=== PATIENT | male | born 1960 | race Caucasian/White ===

== ENCOUNTER 2018-02-15 12:26 | Observation (INO) | payer OTHER ==
--- NOTE | 2018-02-15 12:52 | XRAY ---
Indication: Fever, cough, dyspnea. Comparison: February 13, 2009. PA/lateral chest demonstrates new diffuse left upper lobe airspace disease with small effusion. Remaining heart, right lung, and bony thorax normal.
[2018-02-15 12:54] LABS: Granulocyte Absolute (ANC) 11.49 (1.4-6.9); Hemoglobin 14.7 gm/dl (12.5-18.0); Mean Cell Volume 87.8 fl (78-100); Mean Corpuscular Hemoglobin 29.3 pg (26-32); Mean Corpuscular Hgb Concent. 33.4 g/dl (32-36); Mean Platelet Volume 10.6 fl (6-9.5); Platelet Count 335 K/mm3 (150-450); Red Blood Count 5.01 M/mm3 (4.1-5.6); Red Cell Distribution Width 13.5 % (11.5-14.0); White Blood Count 12.3 K/mm3 (4.0-10.5)
[2018-02-15 13:14] LABS: ALBUMIN 3.6 g/dL (3.5-5.0); ALKALINE PHOSPHATASE 84 U/L (38-126); ANION GAP 12.2 MEQ/L (5-15); BLOOD UREA NITROGEN 28 mg/dL (9-20); CHLORIDE 98 mmol/L (98-107); Calcium 9.2 mg/dL (8.4-10.2); Carbon Dioxide 31 mmol/L (22-30); Creatinine 1 0.94 mg/dL (0.66-1.25); Glucose 125 mg/dL (74-106); Potassium 3.9 mmol/L (3.5-5.1); SGOT/AST 26 U/L (17-59); SGPT/ALT 27 U/L (0-50); SODIUM 137 mmol/L (137-145); Total Protein 6.8 g/dL (6.3-8.2)
[2018-02-15 13:55] LABS: BAND 8 % (0.0-2.0); Eosinophil 1 % (0.00-3.0); Lymphocytes 5 % (24-44); Monocyte 4 % (0.0-12.0); Neutrophils 82 % (36.-66.); Platelet Estimate NORMAL (NORMAL); Total Cells Counted 100; Toxic Granulation 1+
[2018-02-15] MEDS ORDERED: TYLENOL 325 MG PO PRN (14:17)
[2018-02-15] MEDS ORDERED: Zofran 4 MG/2 ML VIAL IV PRN (14:17)
[2018-02-15] MEDS ORDERED: MORPHINE SULFATE 2 MG INJ IV PRN (14:21)
[2018-02-15 14:52] LABS: A-aADO2 38; ABG HEMOGLOBIN 14.5; ABG POTASSIUM 3.4 (3.5-5.1); ABG SITE LEFT BRACHIAL; ARTERIAL BLD GAS O2 SATURATION 96.2 % (95-100); ARTERIAL BLOOD GAS BASE EXCESS 3.9 (-2.0-2.0); ARTERIAL BLOOD GAS FIO2 21 %; ARTERIAL BLOOD GAS PCO2 38 mmHg (35-45); ARTERIAL BLOOD GAS PO2 64 mmHg (75-100); ARTERIAL BLOOD GAS pH 7.47 (7.35-7.45); HCO3- 27.7 (22-28); HGB O2 SAT 92.2 g/dF (94-100); Lactic Acid 0.9 (0.4-2.0); Methhemoglobin 1.2 % (1.4-1.5); paO2 pAO1 0.63
[2018-02-15] MEDS: ROCEPHIN 1 Gm-D5w 50 ml Bag** 1 G/50 ML IVPB IV SCH (15:01)
[2018-02-15] MEDS: Zithromax 500 MG/ 250 ML NaCl Premix 500 MG/250 ML IVPB IV SCH (15:07)
[2018-02-15] MEDS ORDERED: SUBLIMAZE 100 MCG/2 ML IV ONE (16:22)
[2018-02-15] MEDS ORDERED: solu-MEDROL 125 MG IV ONE (17:46)
[2018-02-15] MEDS ORDERED: Lactated Ringers 1,000 ML IV ONE ×2 (17:47→19:37)
[2018-02-15] MEDS ORDERED: TORAdol 30 mg Injection IV PRN (17:47)
--- NOTE | 2018-02-15 17:48 | PCM.HP ---
History of Present Illness - Chief Complaint Chief Complaint: pneumonia Date: 02/15/18 History of Present Illness: is a 57 year old male. 2 days of chills cough difficulty breathing and anterior sharp chest pain with breathing just had pneumonia and was treated last week he smokes 1 ppd but has no other past medical history he denies drug or alcohol use no other exposures no history of TB or exposure to TB. - Review of Systems Constitutional: Fever, Chills, Fatigue Eyes: No Symptoms Ears, Nose, & Throat: No Symptoms Respiratory: Cough, Short Of Breath Cardiac: Chest Pain, No Edema, No Syncope Abdominal/Gastrointestinal: No Abdominal Pain, No Nausea, No Vomiting, No Diarrhea Genitourinary Symptoms: No Dysuria Musculoskeletal: No Back Pain, No Neck Pain Skin: No Rash Neurological: No Dizziness, No Focal Weakness, No Sensory Changes Psychological: No Symptoms Endocrine: No Symptoms Hematologic/Lymphatic: No Symptoms Immunological/Allergic: No Symptoms Medications & Allergies Home Medications: Home Medication List No Reportable Medications [No Reported Medications] 02/15/18 [History Confirmed 02/15/18] Allergies/Adverse Reactions: Allergies Allergy/AdvReac Type Severity Reaction Status Date / Time No Known Drug Allergies Allergy Unverified 02/15/18 14:48 - Past Medical History Past Medical History: Yes Neurological History: No Pertinent History ENT History: No Pertinent History Cardiac History: No Pertinent History Respiratory History: No Pertinent History Endocrine Medical History: No Pertinent History Musculoskelatal History: No Pertinent History GI Medical History: GERD, Hernia History: No Pertinent History Pyscho-Social History: No Pertinent History Male Reproductive Disorders: No Pertinent History Comment: concussion coma - Past Surgical History Past Surgical History: No Neuro Surgical History: Brain Shunt Cardiac History: No Pertinent History Respiratory Surgery: No Pertinent History GI Surgical History: Hernia Repair Genitourinary Surgical Hx: No Pertinent History Musculskeletal Surgical Hx: No Pertinent History Male Surgical History: No Pertinent History - Social History Smoking Status: Current every day smoker Alcohol: None Drug Use: none - Physical Exam Vital Signs: Vital Signs - 24 hr Temp Pulse Resp BP Pulse Ox 02/15/18 16:00 98.9 F 18 L 18 131/74 95 02/15/18 14:18 98.9 F 85 18 131/74 95 General Appearance: no apparent distress, alert Neurologic Exam: alert, oriented x 3, cooperative, normal mood/affect, nml cerebellar function, nml station & gait, sensation nml, No motor deficits Eye Exam: PERRL/EOMI, eyes nml inspection Ears, Nose, Throat Exam: normal ENT inspection, pharynx normal, moist mucous membranes Neck Exam: normal inspection, non-tender, supple, full range of motion Respiratory Exam: chest tenderness (left anterior chest), lungs clear, No respiratory distress Cardiovascular Exam: regular rate/rhythm, normal heart sounds, normal peripheral pulses Gastrointestinal/Abdomen Exam: soft, normal bowel sounds, No tenderness, No mass Back Exam: normal inspection, normal range of motion, No CVA tenderness, No vertebral tenderness Extremity Exam: normal inspection, normal range of motion, pelvis stable Skin Exam: normal color, warm, dry, No rash Lymphatic Exam: No adenopathy Results - Labs Lab/Micro Results: Lab Results-Last 24 Hours 02/15/18 02/15/18 02/15/18 Range/Units 12:32 12:32 12:32 WBC 12.3 H (4.0-10.5) K/mm3 RBC 5.01 (4.1-5.6) M/mm3 Hgb 14.7 (12.5-18.0) gm/dl Hct 44.0 (42-50) % MCV 87.8 (78-100) fl MCH 29.3 (26-32) pg MCHC 33.4 (32-36) g/dl RDW 13.5 (11.5-14.0) % Plt Count 335 (150-450) K/mm3 MPV 10.6 H (6-9.5) fl Absolute Granulocytes 11.49 H (1.4-6.9) Segmented Neutrophils 82 H (36.-66.) % Band Neutrophils 8 H (0.0-2.0) % Lymphocytes (Manual) 5 L (24-44) % Monocytes (Manual) 4 (0.0-12.0) % Eosinophils (Manual) 1 (0.00-3.0) % Differential Comment NORMAL Toxic Granulation 1+ Platelet Estimate NORMAL (NORMAL) Puncture Site pCO2 (35-45) mmHg pO2 (75-100) mmHg Base Excess (-2.0-2.0) O2 Saturation (94-100) g/dF ABG pH (7.35-7.45) ABG HCO3 (22-28) ABG O2 Sat (Measured) (95-100) % Mu Test A-a Gradient a/A Ratio Hemoglobin Carboxyhemoglobin (0.0-6.9) % THgb Methemoglobin (1.4-1.5) % Temperature C POC O2 Flow Rate % Sodium 137 (137-145) mmol/L Potassium 3.9 (3.5-5.1) mmol/L Chloride 98 (98-107) mmol/L Carbon Dioxide 31 H (22-30) mmol/L Anion Gap 12.2 (5-15) MEQ/L BUN 28 H (9-20) mg/dL Creatinine 0.94 (0.66-1.25) mg/dL Estimated GFR > 60 ML/MIN Glucose 125 H (74-106) mg/dL Lactic Acid (0.4-2.0) Calcium 9.2 (8.4-10.2) mg/dL Total Bilirubin 0.40 (0.2-1.3) mg/dL AST 26 (17-59) U/L ALT 27 (0-50) U/L Alkaline Phosphatase 84 (38-126) U/L Troponin I < 0.012 (0.000-0.034) ng/mL Serum Total Protein 6.8 (6.3-8.2) g/dL Albumin 3.6 (3.5-5.0) g/dL 02/15/18 Range/Units 14:19 WBC (4.0-10.5) K/mm3 RBC (4.1-5.6) M/mm3 Hgb (12.5-18.0) gm/dl Hct (42-50) % MCV (78-100) fl MCH (26-32) pg MCHC (32-36) g/dl RDW (11.5-14.0) % Plt Count (150-450) K/mm3 MPV (6-9.5) fl Absolute Granulocytes (1.4-6.9) Segmented Neutrophils (36.-66.) % Band Neutrophils (0.0-2.0) % Lymphocytes (Manual) (24-44) % Monocytes (Manual) (0.0-12.0) % Eosinophils (Manual) (0.00-3.0) % Differential Comment Toxic Granulation Platelet Estimate (NORMAL) Puncture Site LEFT BRACHIAL pCO2 38 (35-45) mmHg pO2 64 L (75-100) mmHg Base Excess 3.9 H (-2.0-2.0) O2 Saturation 92.2 L (94-100) g/dF ABG pH 7.47 H (7.35-7.45) ABG HCO3 27.7 (22-28) ABG O2 Sat (Measured) 96.2 (95-100) % Mu Test NOT APPLICABLE A-a Gradient 38 a/A Ratio 0.63 Hemoglobin 14.5 Carboxyhemoglobin 3.0 (0.0-6.9) % THgb Methemoglobin 1.2 L (1.4-1.5) % Temperature 37.0 C POC O2 Flow Rate 21 % Sodium (137-145) mmol/L Potassium 3.4 L (3.5-5.1) mmol/L Chloride (98-107) mmol/L Carbon Dioxide (22-30) mmol/L Anion Gap (5-15) MEQ/L BUN (9-20) mg/dL Creatinine (0.66-1.25) mg/dL Estimated GFR ML/MIN Glucose (74-106) mg/dL Lactic Acid 0.9 (0.4-2.0) Calcium (8.4-10.2) mg/dL Total Bilirubin (0.2-1.3) mg/dL AST (17-59) U/L ALT (0-50) U/L Alkaline Phosphatase (38-126) U/L Troponin I (0.000-0.034) ng/mL Serum Total Protein (6.3-8.2) g/dL Albumin (3.5-5.0) g/dL - Radiology Impressions Radiology Exams & Impressions: Radiology Procedures Category Date Time Status CHEST 2 VIEWS (PA AND LAT) Routine Exams 02/15/18 12:38 Completed Assessment/Plan (1) Pneumonia Current Visit: Yes Status: Acute Qualifiers: Laterality: left Lung location: upper lobe of lung Assessment & Plan: with pleuritic chest pain start azithromycin and ceftriaxone solumedrol 125 mg stat the morphine made the pain worse fentanyl improved pain will continue this toradol prn after the fluid bolus pepcid for gi ppx and lovenox for dvt ppx d-dimer pending Code(s): J18.9 - PNEUMONIA, UNSPECIFIED ORGANISM
[2018-02-15] MEDS: Lactated Ringers 1,000 ML IV SCH ×2 (19:25→19:41)
[2018-02-15] MEDS: SUBLIMAZE 100 MCG/2 ML IV PRN ×2 (19:41→23:09)
[2018-02-15] MEDS: Pepcid 20 MG PO SCH (21:25)
[2018-02-16 05:37] LABS: Granulocyte Absolute (ANC) 10.07 (1.4-6.9); Hematocrit 39.5 % (42-50); Hemoglobin 13.3 gm/dl (12.5-18.0); Mean Cell Volume 87.8 fl (78-100); Mean Corpuscular Hemoglobin 29.6 pg (26-32); Mean Corpuscular Hgb Concent. 33.7 g/dl (32-36); Mean Platelet Volume 10.5 fl (6-9.5); Platelet Count 310 K/mm3 (150-450); Red Cell Distribution Width 13.3 % (11.5-14.0); White Blood Count 10.6 K/mm3 (4.0-10.5)
[2018-02-16 05:49] LABS: ANION GAP 11.1 MEQ/L (5-15); BLOOD UREA NITROGEN 17 mg/dL (9-20); CHLORIDE 103 mmol/L (98-107); Calcium 9.1 mg/dL (8.4-10.2); Carbon Dioxide 27 mmol/L (22-30); Creatinine 1 0.59 mg/dL (0.66-1.25); Glucose 177 mg/dL (74-106); SODIUM 137 mmol/L (137-145)
[2018-02-16 05:55] LABS: NT PRO BNP 335 pg/mL (0-900)
[2018-02-16] MEDS ORDERED: SUBLIMAZE 100 MCG/2 ML IV PRN (06:45)
[2018-02-16] MEDS: Lactated Ringers 1,000 ML IV SCH (06:59)
[2018-02-16 07:26] LABS: BAND 26 % (0.0-2.0); Lymphocytes 7 % (24-44); Monocyte 4 % (0.0-12.0); Neutrophils 63 % (36.-66.); Total Cells Counted 100
[2018-02-16 07:27] LABS: ANISOCYTOSIS 1+; Platelet Estimate NORMAL (NORMAL); Toxic Granulation 1+
--- NOTE | 2018-02-16 08:48 | XRAY ---
Indication: Elevated d-dimer. Fever, cough, dyspnea. Multiple contiguous axial images obtained through the chest using 80 cc Isovue 370 contrast and PE protocol. Comparison: None There is good opacification of the pulmonary arteries to include the lobar and segmental branches. No filling defect or pulmonary embolus. Heart is not enlarged. Aorta is normal in course and caliber. A few prominent mediastinal lymph nodes, largest 1.4 x 2.3 cm in the AP window. Also small subcarinal and right infrahilar calcified nodes. Examination of the lung parenchyma demonstrates large consolidating airspace disease in the left upper lobe and lingula with lesser degree in the superior segment of the left lower lobe. Also bibasilar dependent atelectasis, left greater than right and tiny left effusion. Bony thorax intact. Limited upper abdomen is unremarkable. Impression: 1. Negative pulmonary embolus. 2. Diffuse left lung consolidating airspace disease with tiny effusion corresponding to the same day chest radiograph finding. Probable reactive mediastinal lymph nodes. Comment: Preliminary interpretation was made by [facility]. No discrepancy. CT DI 16.67
[2018-02-16] MEDS: Pepcid 20 MG PO SCH (09:49)
[2018-02-16] MEDS: ROCEPHIN 1 Gm-D5w 50 ml Bag** 1 G/50 ML IVPB IV SCH (09:50)
[2018-02-16] MEDS ORDERED: ENOXAPARIN SODIUM SQ SCH (10:00)
[2018-02-16] MEDS: Zithromax 500 MG/ 250 ML NaCl Premix 500 MG/250 ML IVPB IV SCH (12:01)
[2018-02-16 17:09] VITALS: BP 150/75; PULSE 91; O2SAT 95
--- NOTE | 2018-02-16 17:36 | PCM.DS ---
Discharge Summary Date of Admission: 02/15/18 13:38 Date of Discharge: 02/16/2018 Admitting Physician: JUAN MCFARLANE Primary Care Provider: JUAN MCFARLANE Allergies Allergies No Known Drug Allergies Allergy (Unverified 02/15/18 14:48) Hospital Summary - Hospital Course Hospital Course: He presented to [facility] with sob, tachypnea, chest pain and fever with productive sputum. Work up showed bandemia and pneumonia and elevated d-dimer. he was treated with Rocephin and azithromycin and 125 mg of solumedrol. He had 1 dose of morphine at 2mg iv and it made his pain in his chest worse and he was checked troponin and ekg were negative but d dimer eleaveted and ct pe protocol showed extensive left sided pneumonia with reactive mediastinal lymphadenopathy. His izabella pain resolved after 1 dose of 25 mcg fentanyl and he did not take any further. He did well with no oxygen and remained afebrile. His tachypnea improved but remained sob with exertion. he had copious benji brown sputum production with sputum culture pending. He was asking for discharge to home and was preformed with follow up next week and continue the antibiotics with cefdinir. He had his 2nd dose of rocephin and azithromycin prior to discharge. - Vitals & Intake/Output Vital Signs: Vital Signs Temperature 98.5 F 02/16/18 16:00 Pulse Rate 91 H 02/16/18 16:00 Respiratory Rate 18 02/16/18 16:00 Blood Pressure 150/75 02/16/18 16:00 O2 Sat by Pulse Oximetry 95 02/16/18 16:00 Intake & Output: Intake & Output 02/14/18 02/15/18 02/16/18 02/17/18 11:59 11:59 11:59 11:59 Intake Total 2348 360 Output Total 600 Balance 1748 360 Weight 60.1 kg - Lab Result Diagrams: 02/16/18 05:20 02/16/18 05:20 Lab Results-Last 24 Hrs: Lab Results-Last 24 Hours 02/15/18 02/16/18 02/16/18 Range/Units 17:44 05:20 05:20 WBC 10.6 H (4.0-10.5) K/mm3 RBC 4.50 (4.1-5.6) M/mm3 Hgb 13.3 (12.5-18.0) gm/dl Hct 39.5 L (42-50) % MCV 87.8 (78-100) fl MCH 29.6 (26-32) pg MCHC 33.7 (32-36) g/dl RDW 13.3 (11.5-14.0) % Plt Count 310 (150-450) K/mm3 MPV 10.5 H (6-9.5) fl Absolute Granulocytes 10.07 H (1.4-6.9) Segmented Neutrophils 63 (36.-66.) % Band Neutrophils 26 H (0.0-2.0) % Lymphocytes (Manual) 7 L (24-44) % Monocytes (Manual) 4 (0.0-12.0) % Differential Comment ABNORMAL Toxic Granulation 1+ Platelet Estimate NORMAL (NORMAL) Anisocytosis 1+ D-Dimer 867.64 H* (215-500) ng/mL Sodium 137 (137-145) mmol/L Potassium 4.0 (3.5-5.1) mmol/L Chloride 103 (98-107) mmol/L Carbon Dioxide 27 (22-30) mmol/L Anion Gap 11.1 (5-15) MEQ/L BUN 17 (9-20) mg/dL Creatinine 0.59 L (0.66-1.25) mg/dL Estimated GFR > 60 ML/MIN Glucose 177 H (74-106) mg/dL Calcium 9.1 (8.4-10.2) mg/dL NT-Pro-B Natriuret Pep 335 (0-900) pg/mL - Radiology Exams Ordered Rad Exams-Entire Visit: Radiology Procedures Category Date Time Status CHEST 2 VIEWS (PA AND LAT) Routine Exams 02/15/18 12:38 Completed CHEST WITH CONTRAST [CT] Stat Exams 02/15/18 18:20 Completed - Procedures and Test Procedures and Tests throughout Hospitalization: Therapy Orders & Screens 02/15/18 14:17 EKG STAT Comment: 02/15/18 15:00 OT Screen per Nursing Assess ONCE Comment: Protocol Order Physician Instructions: Greater than 3 points order OT Admission Screening Reason For Exam: Triggered on Admission Diagnosis: pneumonia Open Wound/Cellutlitis/Pressure Ulcers: No Acute Fx/ORIF/Change in wt bearing status: No Severe MUSCULOSKELETAL pain: Yes: left chest from pneumonia ADL Dysfunction: No Acute CVA w/Hemiparesis/Hemiplegia: No Decreased Functional Mobility/Strength: No Sprain/Strain: No Acute Post-op Mobility Dysfunction: No Total Points: 5 PT Screen per Nursing Assess ONCE Comment: Protocol Order Physician Instructions: Greater than 3 points order PT Admission Screenin Reason For Exam: Triggered on Admission Diagnosis: pneumonia Open Wound/Cellutlitis/Pressure Ulcers: No Acute Fx/ORIF/Change in wt bearing status: No Severe MUSCULOSKELETAL pain: Yes: left chest from pneumonia ADL Dysfunction: No Acute CVA w/Hemiparesis/Hemiplegia: No Decreased Functional Mobility/Strength: No Sprain/Strain: No Acute Post-op Mobility Dysfunction: No Total Points: 5 Smoking Cessation Education ONCE Comment: Diagnosis: pneumonia Smoking Status: Current some day smoker Discharge Exam General Appearance: no apparent distress, alert, thin Neurologic Exam: alert, oriented x 3, cooperative, normal mood/affect, nml cerebellar function, sensation nml, No motor deficits Skin Exam: normal color, warm, dry Eye Exam: PERRL, EOMI, eyes nml inspection Ears, Nose, Throat Exam: normal ENT inspection, pharynx normal, moist mucous membranes Neck Exam: normal inspection, non-tender, supple, full range of motion Respiratory Exam: normal breath sounds, lungs clear, No respiratory distress Cardiovascular Exam: regular rate/rhythm, normal heart sounds Gastrointestinal/Abdomen Exam: soft, No tenderness, No mass Extremity Exam: normal inspection, normal range of motion Back Exam: normal inspection, normal range of motion, No CVA tenderness, No vertebral tenderness Male Genitalia Exam: deferred Rectal Exam: deferred Final Diagnosis/Problem List - Final Discharge Diagnosis/Problem (1) Pneumonia Status: Acute Onset Date: ~02/15/18 - Discharge Discharge Date: 02/16/18 Disposition: Home, Self-Care Condition: Stable Prescriptions: New Cefdinir 300 mg [Omnicef 300 mg] 300 mg PO BID #10 capsule Instructions: Pneumonia, Adult (DC) Follow up with: JUAN MCFARLANE [Primary Care Provider] - 02/23/18 9:45 am Forms: Discharge Instructions
== END 2018-02-16 18:35 | disposition home or self-care (01) ==
LOC: RAD 12:26 → EDSTATUS 13:37 → MED SURG 13:38
PROVIDERS: ADMIT Family Medicine; ATTEND Family Medicine
DX: J18.9 Pneumonia, unspecified organism (principal); K21.9 Gastro-esophageal reflux disease without esophagitis; Z72.0 Tobacco use; R07.89 Other chest pain
CPT/HCPCS: 36415; 36600; 71046; 71260; 80048; 80053; 82375; 82803; 83605; 83880; 84484; 85025; 85379; 93005; 93268; G0378; J0456; J0696; J1650; J2270; J2930; J3010; A9270-GY

== ENCOUNTER 2021-01-30 13:21 | Emergency (ER) | payer OTHER ==
[2021-01-30] MEDS ORDERED: Sodium Chloride 0.9% 1000 ML 1,000 ML IV STA (13:29)
[2021-01-30 13:33] VITALS: BP 178/93
[2021-01-30] MEDS ORDERED: Sodium Chloride 0.9% 1000 ML 1,000 ML ONE (13:43)
[2021-01-30 13:57] LABS: Absolute Neutrophil Ct (ANC) 3.44 (1.4-6.9); BASOPHIL % 0.3 % (0.0-0.4); Basophil (Absolute #) 0.02 (0-0.4); Eosinophil % 4.2 % (0.00-5.0); Eosinophil (Absolute #) 0.26 (0-0.5); Hematocrit 44.5 % (42-50); Hemoglobin 14.2 gm/dl (12.5-18.0); Lymphocyte (Absolute #) 1.96 (1.0-4.6); Lymphocytes % 31.5 % (24.0-44.0); Mean Cell Volume 90.1 fl (78-100); Mean Corpuscular Hemoglobin 28.7 pg (26-32); Mean Corpuscular Hgb Concent. 31.9 g/dl (32-36); Mean Platelet Volume 10.1 fl (7.5-11.0); Monocyte (Absolute #) 0.54 (0.0-1.3); Monocytes % 8.7 % (0.0-12.0); Neutrophil % 55.3 % (36.0-66.0); Platelet Count 367 K/mm3 (150-450); Red Blood Count 4.94 M/mm3 (4.1-5.6); Red Cell Distribution Width 13.2 % (11.5-14.0); White Blood Count 6.2 K/mm3 (4.0-10.5)
--- NOTE | 2021-01-30 14:04 | ERPHSYRPT ---
- History of Present Illness Time Seen by Provider: 01/30/21 14:02 Source: patient Exam Limitations: no limitations Patient Subjective Stated Complaint: Pt states "I keep gatting dizzy. I was told if I got dizzy again to come to the ER." Triage Nursing Assessment: PT presented alert and oriented X 3, skin wpd pt ambulates with an upright steady gait, able to speak in clear full sentences pt in no apparent respiratory distress. Physician History: Mr. Harris is 60-year-old gentleman with history of hypertension started getting dizzy for last 2 to 3 days. Today his dizziness got worse so he came to the emergency room. He denies any spinning room sensation. He denies dizziness while turning head. He denies any chest pain nausea vomiting abdominal pain diarrhea headache. Timing/Duration: yesterday Severity: moderate Associated Symptoms: denies symptoms Allergies/Adverse Reactions: No Known Drug Allergies Allergy (Verified 01/30/21 13:33) Home Medications: Amlodipine Besylate 5 mg [Norvasc 5 mg] 5 mg PO DAILY 01/30/21 [History] Sertraline HCl [Zoloft] 25 mg PO DAILY 01/30/21 [History] Hx Tetanus, Diphtheria Vaccination/Date Given: No Hx Influenza Vaccination/Date Given: No Hx Pneumococcal Vaccination/Date Given: No Immunizations Up to Date: Yes Travel Risk - International Travel Have you traveled outside of the country in past 3 weeks: No - Coronavirus Screening Are you exhibiting any of the following symptoms?: No Close contact with a COVID-19 positive Pt in past 14-21 Days: No - Review of Systems Constitutional: No Fever, No Chills Eyes: No Symptoms Ears, Nose, & Throat: No Symptoms Respiratory: No Cough, No Dyspnea Cardiac: No Chest Pain, No Edema, No Syncope Abdominal/Gastrointestinal: No Abdominal Pain, No Nausea, No Vomiting, No Diarrhea Genitourinary Symptoms: No Dysuria Musculoskeletal: No Back Pain, No Neck Pain Skin: No Rash Neurological: No Dizziness, No Focal Weakness, No Sensory Changes Psychological: No Symptoms Endocrine: No Symptoms All Other Systems: Reviewed and Negative - Past Medical History Pertinent Past Medical History: Yes Neurological History: No Pertinent History ENT History: No Pertinent History Cardiac History: No Pertinent History Respiratory History: No Pertinent History Endocrine Medical History: No Pertinent History Musculoskeletal History: No Pertinent History GI Medical History: GERD, Hernia History: No Pertinent History Psycho-Social History: No Pertinent History Male Reproductive Disorders: No Pertinent History Other Medical History: concussion coma - Past Surgical History Past Surgical History: No Neuro Surgical History: Brain Shunt Cardiac: No Pertinent History Respiratory: No Pertinent History Gastrointestinal: Hernia Repair Genitourinary: No Pertinent History Musculoskeletal: No Pertinent History Male Surgical History: No Pertinent History - Social History Smoking Status: Current every day smoker How long have you smoked: 20 years Exposure to second hand smoke: Yes Drug Use: none Patient Lives Alone: No - Nursing Vital Signs Nursing Vital Signs: Initial Vital Signs Temperature 97.7 F 01/30/21 13:25 Pulse Rate 76 01/30/21 13:25 Respiratory Rate 20 01/30/21 13:25 Blood Pressure 178/93 01/30/21 13:25 O2 Sat by Pulse Oximetry 99 01/30/21 13:25 Pain Scale Pain Intensity 0 - Physical Exam General Appearance: no apparent distress, alert Eye Exam: PERRL/EOMI, eyes nml inspection Ears, Nose, Throat Exam: normal ENT inspection, TMs normal, pharynx normal, moist mucous membranes Neck Exam: normal inspection, non-tender, supple, full range of motion Respiratory Exam: normal breath sounds, lungs clear, No respiratory distress Cardiovascular Exam: regular rate/rhythm, normal heart sounds, normal peripheral pulses Gastrointestinal/Abdomen Exam: soft, normal bowel sounds, No tenderness, No mass Back Exam: normal inspection, normal range of motion, No CVA tenderness, No vertebral tenderness Extremity Exam: normal inspection, normal range of motion, pelvis stable Neurologic Exam: alert, oriented x 3, cooperative, normal mood/affect, nml cerebellar function, nml station & gait, sensation nml, No motor deficits Skin Exam: normal color, warm, dry, No rash Lymphatic Exam: No adenopathy SpO2: 99 - Course Nursing assessment & vital signs reviewed: Yes - Radiology Exams Chest X-ray Interpretation: Reviewed by me, Negative - CT Exams Head CT Interpretation: Tele-radiologist Report, No/Intracranial Hemorrhag Ordered Tests: Active Orders 24 hr Category Date Time Status Risk Management Director STAT Care 01/30/21 13:30 Active EKG-ER Only STAT Care 01/30/21 13:29 Active CHEST 2 VIEWS (PA AND LAT) Stat Exams 01/30/21 13:30 Taken HEAD WITHOUT CONTRAST [CT] Stat Exams 01/30/21 13:30 Taken CBC W DIFF Stat Lab 01/30/21 13:30 Completed CMP Stat Lab 01/30/21 13:30 Completed TROPONIN Q3H Lab 01/30/21 13:30 Received TROPONIN Q3H Lab 01/30/21 16:30 Ordered TROPONIN Q3H Lab 01/30/21 19:30 Ordered TROPONIN Q3H Lab 01/30/21 22:30 Ordered TROPONIN Q3H Lab 01/31/21 01:30 Ordered UA W/RFX UR CULTURE Stat Lab 01/30/21 13:45 Completed Medication Summary Discontinued Medications Generic Name Dose Route Start Last Admin Trade Name Martínezq PRN Reason Stop Dose Admin Sodium Chloride 1,000 mls @ 999 mls/hr 01/30/21 13:29 01/30/21 13:43 Sodium Chloride 0.9% 1000 Ml IV 01/30/21 14:29 999 mls/hr .Q1H1M STA Administration Sodium Chloride Confirm 01/30/21 13:43 Sodium Chloride 0.9% 1000 Ml Administered 01/30/21 13:44 Dose 1,000 mls @ ud .ROUTE .STK-MED ONE Meclizine HCl Confirm 01/30/21 14:39 Antivert 25 Mg Administered 01/30/21 14:40 Dose 50 mg .ROUTE .STK-MED ONE Lab/Rad Data: Laboratory Result Diagrams 01/30/21 13:30 01/30/21 13:30 Laboratory Results 01/30/21 01/30/21 01/30/21 Range/Units 13:45 13:30 13:30 WBC 6.2 (4.0-10.5) K/mm3 RBC 4.94 (4.1-5.6) M/mm3 Hgb 14.2 (12.5-18.0) gm/dl Hct 44.5 (42-50) % MCV 90.1 (78-100) fl MCH 28.7 (26-32) pg MCHC 31.9 L (32-36) g/dl RDW 13.2 (11.5-14.0) % Plt Count 367 (150-450) K/mm3 MPV 10.1 (7.5-11.0) fl Gran % 55.3 (36.0-66.0) % Eos # (Auto) 0.26 (0-0.5) Absolute Lymphs (auto) 1.96 (1.0-4.6) Absolute Monos (auto) 0.54 (0.0-1.3) Lymphocytes % 31.5 (24.0-44.0) % Monocytes % 8.7 (0.0-12.0) % Eosinophils % 4.2 (0.00-5.0) % Basophils % 0.3 (0.0-0.4) % Absolute Granulocytes 3.44 (1.4-6.9) Basophils # 0.02 (0-0.4) Sodium 138 (137-145) mmol/L Potassium 4.3 (3.5-5.1) mmol/L Chloride 105 (98-107) mmol/L Carbon Dioxide 27 (22-30) mmol/L Anion Gap 10.3 (5-15) MEQ/L BUN 8 L (9-20) mg/dL Creatinine 0.70 (0.66-1.25) mg/dL Estimated GFR > 60.0 ML/MIN Glucose 113 H (74-106) mg/dL Calcium 9.4 (8.4-10.2) mg/dL Total Bilirubin 0.50 (0.2-1.3) mg/dL AST 33 (17-59) U/L ALT 20 (0-50) U/L Alkaline Phosphatase 61 (38-126) U/L Serum Total Protein 7.3 (6.3-8.2) g/dL Albumin 4.4 (3.5-5.0) g/dL Urine Color YELLOW (YELLOW) Urine Appearance CLEAR (CLEAR) Urine pH 5.0 (5-6) Ur Specific [place] 1.018 (1.005-1.025) Urine Protein NEGATIVE (Negative) Urine Ketones NEGATIVE (NEGATIVE) Urine Blood NEGATIVE (0-5) Alfonso/ul Urine Nitrite NEGATIVE (NEGATIVE) Urine Bilirubin NEGATIVE (NEGATIVE) Urine Urobilinogen NEGATIVE (0-1) mg/dL Ur Leukocyte Esterase NEGATIVE (NEGATIVE) Urine WBC (Auto) NONE SEEN (0-5) /HPF Urine RBC (Auto) 0-2 (0-2) /HPF U Epithel Cells (Auto) RARE (FEW) /HPF Urine Bacteria (Auto) NONE (NEGATIVE) /HPF Urine Mucus (Auto) SLIGHT (NEGATIVE) /HPF Urine Culture Reflexed NO (NO) Urine Glucose NEGATIVE (NEGATIVE) mg/dL - Progress Progress: improved Counseled pt/family regarding: lab results, diagnosis, need for follow-up, rad results, smoking cessation - Departure Departure Disposition: Home Clinical Impression: Dizziness and giddiness Condition: Stable Critical Care Time: Yes Critical Care Time(excluding separately billable procedures): Critical 30-74 mins Referrals: CARLOS GUERIN [Primary Care Provider] - Instructions: Dizziness, Nonvertigo, (DC) Additional Instructions: ANDRIA COLLADO was seen on 01/30/21 n the Emergency Room. At that time you were treated for an emergent condition, during your visit Laboratory, Radiology and/or other procedures may have been ordered. It is very important that you follow-up with your Primary Care Physician CARLOS GUERIN within the next 24-48 hours to review your Emergency Room visit and the final results of testing that was ordered. Some test results such as Urine Cultures, Blood Cultures, and other cultures if ordered will not be finalized for 24-48 hours. If you do not have a Primary Care Provider please call the medical records department at [phone] ext [phone] to obtain a copy of your results or you may sign into our patient portal to obtain these results by visiting us @ [email or web address] and completing the following steps: 1. Click on the Patient Portal link 2. Click the Patient Self Enrollment Link to complete the enrollment form and entering your 3. Once the enrollment form is completed you will receive an email with a tem porary ID and password at the email address you provided. 4. Next choose a user name and password. Your user name must be at least 4 characters long and your password must be at least 4 characters long. 5. Choose a security question from the list and provide your answer to the question. If you already have signed into the Health Portal you may access your Health Care Information 12/06 by the following steps: 1. Login to our website @ [email or web address] 2. Enter your original user name and password. FAQS The [facility] Health Portal is an online tool that contains your Lab Results, Radiology Reports, Visit History, Discharge Instructions and Health Summary Lab and Radiology Results will not be available for 72 hours on the portal. The Portal is a secure site, passwords are encryted and URLs are re-written so they cannot be copied and pasted. You and authorized family members are the only ones who can access your Portal. Also there is a timeout feature that protects your information if you leave the Portal page open. If you have technical difficulty please use the Contact Us link on the page this will allow you to submit any questions you have regarding the Portal or you may contact the Medical Record Department at [phone] ext [phone]. Discharge/Care Plan ANDRIA COLLADO was seen on 01/30/21 in the Emergency Room. The patient was counseled regarding Diagnosis,Lab results, Imaging studies, need for follow up and when to return to the Emergency Room. Prescriptions given: Discharge Note I have spoken with the patient and/or caregivers. I have explained the patient's condition, diagnosis and treatment plan based on the information available to me at this time. I have answered the patient's and/or caregiver's questions and addressed any concerns. The patient and/or caregivers have as good understanding of the patient's diagnosis, condition and treatment plan as can be expected at this point. The vital signs have been stable. The patient's condition is stable and appropriate for discharge from the emergency department. The patient will pursue further outpatient evaluation with the primary care physician or other designated or consulting physician as outlined in the discharge instructions. The patient and/or caregivers are agreeable to this plan of care and follow-up instructions have been explained in detail. The patient and/or caregivers have received these instruction. The patient/and or caregivers are aware that any significant change in condition or worsening of symptoms should prompt an immediate return to this or the closest emergency department or call 911. Prescriptions: Meclizine HCl 25 mg [Antivert 25 mg] 25 mg PO TID PRN #20 tablet PRN Reason: Dizziness
[2021-01-30 14:12] LABS: Appearance CLEAR (CLEAR); Bilirubin NEGATIVE (NEGATIVE); Blood NEGATIVE Ery/ul (0-5); Epithelial Cells RARE /HPF (FEW); Glucose NEGATIVE (NEGATIVE); Ketones NEGATIVE (NEGATIVE); Leukocyte Esterase NEGATIVE (NEGATIVE); Mucus SLIGHT /HPF (NEGATIVE); Nitrite NEGATIVE (NEGATIVE); Protein,Urine Dip NEGATIVE (Negative); RBC 0-2 /HPF (0-2); Specific Gravity 1.018 (1.005-1.025); Urobilinogen NEGATIVE mg/dL (0-1)
[2021-01-30 14:16] LABS: ALBUMIN 4.4 g/dL (3.5-5.0); ALKALINE PHOSPHATASE 61 U/L (38-126); ANION GAP 10.3 MEQ/L (5-15); BLOOD UREA NITROGEN 8 mg/dL (9-20); CHLORIDE 105 mmol/L (98-107); Calcium 9.4 mg/dL (8.4-10.2); Carbon Dioxide 27 mmol/L (22-30); EST GLOMERULAR FILTRATION RATE > 60.0 ML/MIN; Glucose 113 mg/dL (74-106); Potassium 4.3 mmol/L (3.5-5.1); SGOT/AST 33 U/L (17-59); SGPT/ALT 20 U/L (0-50); SODIUM 138 mmol/L (137-145); Total Protein 7.3 g/dL (6.3-8.2)
[2021-01-30 14:18] LABS: WBC NONE SEEN /HPF (0-5)
[2021-01-30 14:35] VITALS: PULSE 72
[2021-01-30] MEDS ORDERED: ANTIVERT 25 MG PO ONE (14:35)
[2021-01-30] MEDS ORDERED: ANTIVERT 25 MG ONE (14:39)
[2021-01-30 14:44] VITALS: O2SAT 99
--- NOTE | 2021-01-30 20:08 | XRAY ---
Indication: Dizziness. Comparison: February 15, 2018. PA/lateral chest demonstrates new left mid to lower lung minimal fibrosis/scarring. No focal infiltrate, consolidation, or large effusion. Heart and mediastinal structures within normal limits. Bony thorax intact. No new/acute findings. Impression: Nonacute chest with chronic feature.
--- NOTE | 2021-01-30 20:12 | XRAY ---
Indication: Dizziness. Multiple contiguous axial images obtained through the head without contrast. Comparison: February 13, 2009. Continued normal appearing brain parenchyma, ventricles, and bony calvarium. Again 1 cm left sphenoid sinus polyp/retention cyst. Remaining visualized paranasal sinuses are clear. Stable minimal opacification of both mastoid air cells. Impression: Again left sphenoid sinus polyp/retention cyst and partial opacification of both mastoid air cells presumed inflammatory. No new/acute intracranial abnormalities. Comment: Preliminary interpretation was made by [facility]. No critical discrepancy.
== END 2021-01-30 14:53 | disposition home or self-care (01) ==
LOC: ED 13:21
DX: R42 Dizziness and giddiness (principal)
CPT/HCPCS: 36000; 36415; 70450; 71046; 80053; 81001; 84484; 85025; 93005; 93041; 96360; 99284; 99291; A9270-GY

== ENCOUNTER 2022-04-30 16:54 | Emergency (ER) | payer OTHER ==
[2022-04-30] MEDS ORDERED: PROTONIX 40 MG IV IV ONE ×2 (16:58→17:02)
[2022-04-30] MEDS ORDERED: Zofran 4 MG/2 ML VIAL IV ONE (16:58)
[2022-04-30] MEDS ORDERED: Sodium Chloride 0.9% 1000 ML 1,000 ML IV STA (16:58)
[2022-04-30] MEDS ORDERED: Sodium Chloride 0.9% 1000 ML 1,000 ML ONE (17:02)
[2022-04-30] MEDS ORDERED: Zofran 4 MG/2 ML VIAL ONE (17:02)
[2022-04-30 17:14] LABS: Absolute Neutrophil Ct (ANC) 5.66 x10^3/uL (1.4-6.9); Basophil (Absolute #) 0.04 x10^3/uL (0-0.4); Eosinophil % 6.9 % (0.00-5.0); Eosinophil (Absolute #) 0.58 x10^3/uL (0-0.5); Hematocrit 50.7 % (42-50); Hemoglobin 16.1 g/dL (12.5-18.0); Lymphocyte (Absolute #) 1.58 x10^3/uL (1.0-4.6); Lymphocytes % 18.9 % (24.0-44.0); Mean Cell Volume 90.9 fL (78-100); Mean Corpuscular Hemoglobin 28.9 pg (26-32); Mean Corpuscular Hgb Concent. 31.8 g/dL (32-36); Mean Platelet Volume 9.6 fL (7.5-11.0); Monocyte (Absolute #) 0.49 x10^3/uL (0.0-1.3); Monocytes % 5.9 % (0.0-12.0); Neutrophil % 67.6 % (36.0-66.0); Platelet Count 396 x10^3/uL (150-450); Red Blood Count 5.58 x10^6/uL (4.1-5.6); Red Cell Distribution Width 12.8 % (11.5-14.0); White Blood Count 8.4 x10^3/uL (4.0-10.5)
--- NOTE | 2022-04-30 17:14 | ERPHSYRPT ---
- History of Present Illness Time Seen by Provider: 04/30/22 17:11 Historian: patient, family Exam Limitations: no limitations Patient Subjective Stated Complaint: Pt states "I was placed on some new meds and my belly hurts." Triage Nursing Assessment: Pt presented alert and oriented X 3, skin pwd Pt ambulates with an upright steady gait, able to speak in clear full sentences. pt in no appaernt respiratory distress. pt laying comfortably on the bed. Physician History: Pt states "I was placed on some new meds and my belly hurts." Patient is 62-year-old male with history of hypertension COPD history of stroke came to the emergency room with 2 days history of periumbilical area abdominal pain associated with low-grade fever and having a difficulty in urination. Patient denies any nausea or vomiting but patient has some loss of appetite for last 2 days.Patient also has a history of hypertension. Patient was recently stopped taking all his medications so his primary care physician has started him on back on all the medication and since then he started having belly pain. Timing/Duration: day(s) Quality: burning Abdominal Pain Onset Location: generalized abdomen Severity of Pain-Max: mild Severity of Pain-Current: mild Modifying Factors: Improves With: nothing Associated Symptoms: denies symptoms Allergies/Adverse Reactions: No Known Drug Allergies Allergy (Verified 01/30/21 13:33) Home Medications: Amlodipine Besylate 5 mg [Norvasc 5 mg] 5 mg PO DAILY 04/30/22 [History] Atorvastatin Calcium [Lipitor] 20 mg PO DAILY 04/30/22 [History] Buspirone HCl 15 mg PO BID 04/30/22 [History] Lisinopril/Hydrochlorothiazide [Lisinopril-Hctz 10-12.5 mg Tab] 1 each PO DAILY 04/30/22 [History] PANTOPRAZOLE 40 mg Tablet [Protonix 40MG Tablet] 40 mg PO DAILY 04/30/22 [ History] PARoxetine HCL [Paroxetine HCl] 40 mg PO DAILY 04/30/22 [History] Hx Tetanus, Diphtheria Vaccination/Date Given: No Hx Influenza Vaccination/Date Given: No Hx Pneumococcal Vaccination/Date Given: No Immunizations Up to Date: Yes Travel Risk - International Travel Have you traveled outside of the country in past 3 weeks: No - Coronavirus Screening Are you exhibiting any of the following symptoms?: No Close contact with a COVID-19 positive Pt in past 14-21 Days: No - Vaccine Status Have you recieved a Covid-19 vaccination: Yes 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[email or web address] - Vaccination Dates Date of 2cond Vaccination (if applicable): 2020 - Review of Systems Constitutional: No Fever, No Chills Eyes: No Symptoms Ears, Nose, & Throat: No Symptoms Respiratory: No Cough, No Dyspnea Cardiac: No Chest Pain, No Edema, No Syncope Abdominal/Gastrointestinal: Abdominal Pain, No Nausea, No Vomiting, No Diarrhea Genitourinary Symptoms: No Dysuria Musculoskeletal: No Back Pain, No Neck Pain Skin: No Rash Neurological: No Dizziness, No Focal Weakness, No Sensory Changes Psychological: No Symptoms Endocrine: No Symptoms All Other Systems: Reviewed and Negative - Past Medical History Pertinent Past Medical History: Yes Neurological History: Stroke, Other ENT History: No Pertinent History Cardiac History: Angina, High Cholesterol, Hypertension Respiratory History: No Pertinent History Endocrine Medical History: No Pertinent History Musculoskeletal History: Other GI Medical History: GERD, Hernia History: No Pertinent History Psycho-Social History: No Pertinent History Male Reproductive Disorders: No Pertinent History Other Medical History: PATIENT REPORTS INJURY TO LEFT KNEE - DIDN'T HAVE SURGERY WAS TOLD IT WOULDN'T BE ANY STRONGER WITH SURGERY. - Past Surgical History Past Surgical History: No Neuro Surgical History: Brain Shunt Cardiac: No Pertinent History Respiratory: No Pertinent History Gastrointestinal: Hernia Repair Genitourinary: No Pertinent History Musculoskeletal: No Pertinent History Male Surgical History: No Pertinent History - Social History Smoking Status: Current every day smoker How long have you smoked: 20 years Exposure to second hand smoke: Yes Drug Use: none Patient Lives Alone: No - Nursing Vital Signs Nursing Vital Signs: Initial Vital Signs Temperature 97.8 F 04/30/22 16:55 Pulse Rate 52 L 04/30/22 16:55 Respiratory Rate 16 04/30/22 16:55 Blood Pressure 144/74 04/30/22 16:55 O2 Sat by Pulse Oximetry 97 04/30/22 16:55 Pain Scale Pain Intensity 2 - Physical Exam General Appearance: no apparent distress, alert Eye Exam: PERRL/EOMI, eyes nml inspection Ears, Nose, Throat Exam: normal ENT inspection, pharynx normal, moist mucous membranes Neck Exam: normal inspection, non-tender, supple, full range of motion Respiratory Exam: normal breath sounds, lungs clear, No respiratory distress Cardiovascular Exam: regular rate/rhythm, normal heart sounds Gastrointestinal/Abdomen Exam: soft, tenderness (periumbilical area), No mass Back Exam: normal inspection, normal range of motion, No CVA tenderness, No vertebral tenderness Extremity Exam: normal inspection, normal range of motion, pelvis stable Neurologic Exam: alert, oriented x 3, cooperative, normal mood/affect, nml cerebellar function, sensation nml, No motor deficits Skin Exam: normal color, warm, dry SpO2: 97 - Course Nursing assessment & vital signs reviewed: Yes - Radiology Exams Abdomen X-ray Interpretation: Reviewed by me, Negative Ordered Tests: Active Orders 24 hr Category Date Time Status KUB Stat Exams 04/30/22 16:59 Taken AMYLASE Stat Lab 04/30/22 17:11 Completed CBC W DIFF Stat Lab 04/30/22 17:11 Completed CMP Stat Lab 04/30/22 17:11 Completed LIPASE Stat Lab 04/30/22 17:11 Completed UA W/RFX CULTURE Stat Lab 04/30/22 Ordered Medication Summary Discontinued Medications Generic Name Dose Route Start Last Admin Trade Name Freq PRN Reason Stop Dose Admin Sodium Chloride 1,000 mls @ 999 mls/hr 04/30/22 16:58 04/30/22 18:19 Sodium Chloride 0.9% 1000 Ml IV 04/30/22 17:58 Infused .Q1H1M STA Infusion Sodium Chloride Confirm 04/30/22 17:02 Sodium Chloride 0.9% 1000 Ml Administered 04/30/22 17:03 Dose 1,000 mls @ ud .ROUTE .STK-MED ONE Ondansetron HCl 4 mg 04/30/22 16:58 04/30/22 17:05 Ondansetron Hcl 4 Mg/2 Ml Vial IV 04/30/22 16:59 4 mg STAT ONE Administration Ondansetron HCl Confirm 04/30/22 17:02 Ondansetron Hcl 4 Mg/2 Ml Vial Administered 04/30/22 17:03 Dose 4 mg .ROUTE .STK-MED ONE Pantoprazole Sodium 40 mg 04/30/22 16:58 04/30/22 17:05 Pantoprazole 40 Mg Vial IV 04/30/22 16:59 40 mg STAT ONE Administration Pantoprazole Sodium Confirm 04/30/22 17:02 Pantoprazole 40 Mg Vial Administered 04/30/22 17:03 Dose 40 mg IV .[employer] ONE Lab/Rad Data: Laboratory Result Diagrams 04/30/22 17:11 04/30/22 17:11 Laboratory Results 04/30/22 04/30/22 04/30/22 Range/Units 17:11 17:11 16:58 WBC 8.4 (4.0-10.5) x10^3/uL RBC 5.58 (4.1-5.6) x10^6/uL Hgb 16.1 (12.5-18.0) g/dL Hct 50.7 H (42-50) % MCV 90.9 (78-100) fL MCH 28.9 (26-32) pg MCHC 31.8 L (32-36) g/dL RDW 12.8 (11.5-14.0) % Plt Count 396 (150-450) x10^3/uL MPV 9.6 (7.5-11.0) fL Gran % 67.6 H (36.0-66.0) % Immature Gran % (Auto) 0.2 (0.00-0.4) % Nucleat RBC Rel Count 0.0 (0.00-0.1) % Eos # (Auto) 0.58 H (0-0.5) x10^3/uL Immature Gran # (Auto) 0.02 (0.00-0.03) x10^3u/L Absolute Lymphs (auto) 1.58 (1.0-4.6) x10^3/uL Absolute Monos (auto) 0.49 (0.0-1.3) x10^3/uL Absolute Nucleated RBC 0.00 (0.00-0.01) x10^3u/L Lymphocytes % 18.9 L (24.0-44.0) % Monocytes % 5.9 (0.0-12.0) % Eosinophils % 6.9 H (0.00-5.0) % Basophils % 0.5 (0.0-0.4) % Absolute Granulocytes 5.66 (1.4-6.9) x10^3/uL Basophils # 0.04 (0-0.4) x10^3/uL Sodium 135 L (137-145) mmol/L Potassium 4.1 (3.5-5.1) mmol/L Chloride 95 L (98-107) mmol/L Carbon Dioxide 34 H (22-30) mmol/L Anion Gap 10.9 (5-15) MEQ/L BUN 21 H (9-20) mg/dL Creatinine 1.00 (0.66-1.25) mg/dL Estimated GFR > 60.0 ML/MIN Glucose 216 H (74-106) mg/dL Hemoglobin A1c 6.25 H (4.5-6.0) % Calcium 9.9 (8.4-10.2) mg/dL Total Bilirubin 0.60 (0.2-1.3) mg/dL AST 26 (17-59) U/L ALT 17 (0-50) U/L Alkaline Phosphatase 80 (38-126) U/L Serum Total Protein 7.3 (6.3-8.2) g/dL Albumin 4.4 (3.5-5.0) g/dL Amylase 131 H (30-110) U/L Lipase 70 (23-300) U/L - Progress Progress: improved Counseled pt/family regarding: lab results, diagnosis, need for follow-up, rad results, smoking cessation - Departure Departure Disposition: Home Clinical Impression: Drug-induced GI disturbance Type 2 diabetes mellitus Qualifiers: Diabetes mellitus shelter insulin use: without shelter use Diabetes mellit complication status: with hyperglycemia Qualified Code(s): E11.65 - Type 2 diabetes mellitus with hyperglycemia Condition: Stable Critical Care Time: No Referrals: CARLOS GUERIN MD [Primary Care Provider] - Follow up/PCP as directed Instructions: Gastritis (DC), [place] Diet, Type 2 Diabetes (DC) Additional Instructions: Please hold your Paxil and buspirone which is giving you stomach upset. You have developed diabetes and due to that we are starting you on diabetes medicine metformin 500 mg 1 tablet a day prescription has been sent to the pharmacy. Follow-up with your primary care physician in next 2 to 3 days. If your symptoms recur come back to the emergency room. Discharge/Care Plan ANDRIA COLLADO was seen on 04/30/22 in the Emergency Room. The patient was counseled regarding Diagnosis,Lab results, Imaging studies, need for follow up and when to return to the Emergency Room. Prescriptions given: Discharge Note I have spoken with the patient and/or caregivers. I have explained the patient's condition, diagnosis and treatment plan based on the information available to me at this time. I have answered the patient's and/or caregiver's questions and addressed any concerns. The patient and/or caregivers have as good understanding of the patient's diagnosis, condition and treatment plan as can be expected at this point. The vital signs have been stable. The patient's condition is stable and appropriate for discharge from the emergency department. The patient will pursue further outpatient evaluation with the primary care physician or other designated or consulting physician as outlined in the discharge instructions. The patient and/or caregivers are agreeable to this plan of care and follow-up instructions have been explained in detail. The patient and/or caregivers have received these instruction. The patient/and or caregivers are aware that any significant change in condition or worsening of symptoms should prompt an immediate return to this or the closest emergency department or call 911. ANDRIA COLLADO was seen on 04/30/22 n the Emergency Room. At that time you were treated for an emergent condition, during your visit Laboratory, Radiology and/or other procedures may have been ordered. It is very important that you follow-up with your Primary Care Physician CARLOS GUERIN within the next 24-48 hours to review your Emergency Room visit and the final results of testing that was ordered. Some test results such as Urine Cultures, Blood Cultures, and other cultures if ordered will not be finalized for 24-48 hours. If you do not have a Primary Care Provider please call the medical records department at [phone] ext [phone] to obtain a copy of your results or you may sign into our patient portal to obtain these results by visiting us @ [email or web address] and completing the following steps: 1. Click on the Patient Portal link 2. Click the Patient Self Enrollment Link to complete the enrollment form and entering your 3. Once the enrollment form is completed you will receive an email with a temporary ID and password at the email address you provided. 4. Next choose a user name and password. Your user name must be at least 4 characters long and your password must be at least 4 characters long. 5. Choose a security question from the list and provide your answer to the question. If you already have signed into the Health Portal you may access your Health Care Information 12/06 by the following steps: 1. Login to our website @ [email or web address] 2. Enter your original user name and password. FAQS The [facility] Health Portal is an online tool that contains your Lab Results, Radiology Reports, Visit History, Discharge Instructions and Health Summary Lab and Radiology Results will not be available for 72 hours on the portal. The Portal is a secure site, passwords are encryted and URLs are re-written so they cannot be copied and pasted. You and authorized family members are the only ones who can access your Portal. Also there is a timeout feature that protects your information if you leave the Portal page open. If you have technical difficulty please use the Contact Us link on the page this will allow you to submit any questions you have regarding the Portal or you may contact the Medical Record Department at [phone] ext [phone]. Prescriptions: Metformin HCl Xr 500 mg [Glucophage XR 500 MG] 500 mg PO DAILY #30 tab
[2022-04-30 17:25] LABS: ALBUMIN 4.4 g/dL (3.5-5.0); ALKALINE PHOSPHATASE 80 U/L (38-126); AMYLASE 131 U/L (30-110); ANION GAP 10.9 MEQ/L (5-15); BLOOD UREA NITROGEN 21 mg/dL (9-20); CHLORIDE 95 mmol/L (98-107); Calcium 9.9 mg/dL (8.4-10.2); Carbon Dioxide 34 mmol/L (22-30); EST GLOMERULAR FILTRATION RATE > 60.0 ML/MIN; Glucose 216 mg/dL (74-106); LIPASE 70 U/L (23-300); Potassium 4.1 mmol/L (3.5-5.1); SGOT/AST 26 U/L (17-59); SGPT/ALT 17 U/L (0-50); SODIUM 135 mmol/L (137-145); Total Protein 7.3 g/dL (6.3-8.2)
[2022-04-30 18:22] VITALS: BP 143/78; PULSE 78
[2022-04-30 18:44] VITALS: O2SAT 97
--- NOTE | 2022-04-30 20:03 | XRAY ---
Indication: Abdomen pain 3-4 days. Comparison: None KUB nonacute and nonobstructed. Solid organs and osseous structures unremarkable.
== END 2022-04-30 18:57 | disposition home or self-care (01) ==
LOC: ED 16:54
DX: K30 Functional dyspepsia (principal); R10.33 Periumbilical pain; T50.915A Adverse effect of multiple unspecified drugs, medicaments and biological substances, initial encounter; E11.65 Type 2 diabetes mellitus with hyperglycemia; I10 Essential (primary) hypertension; J44.9 Chronic obstructive pulmonary disease, unspecified; E78.5 Hyperlipidemia, unspecified; Z72.0 Tobacco use; Z79.899 Other long term (current) drug therapy; Z79.84 Long term (current) use of oral hypoglycemic drugs
CPT/HCPCS: 36415; 74018; 80053; 82150; 83036; 83690; 85025; 96360; 96374; 96375; 99284; J2405